=== PATIENT | female | born 1950 | race Caucasian/White ===

== ENCOUNTER 2017-08-15 10:03 | Emergency (ER) | payer OTHER, BC ==
[~2017-08-15] VITALS: Ht 167.6 cm; Wt 81.3 kg
[~2017-08-15 10:03] MED LIST: MEDROL DOSEPAK4 MG PO; PEPCID20 MG PO
[2017-08-15 11:23] LABS: HEMATOCRIT 41.5 % (36.0-46.0); HEMOGLOBIN 13.9 G/DL (11.9-15.5); MCH 29.3 PG (29.0-34.0); MCHC 33.5 G/DL (30.0-36.0); MCV 87.6 FL (83-99); PLATELET COUNT 317 K/uL (156-360); RBC DIS.WIDTH-CV 13.7 % (11.8-14.6); RBC DIS.WIDTH-SD 44.1 % (39-53); RED BLOOD COUNT 4.74 M/uL (3.80-5.20); WHITE BLOOD COUNT 7.8 K/uL (4.1-10.2)
[2017-08-15 11:32] LABS: CHLORIDE 107 mEq/L (99-109); SODIUM 142 mEq/L (136-147)
[2017-08-15 11:33] LABS: GLUCOSE 97 mg/dL (70-99)
[2017-08-15 11:37] LABS: CREATININE 0.8 mg/dL (0.6-1.3); GFR ESTIMATE (CALCULATED) > 59 mL/min/
[2017-08-15 11:38] LABS: UREA NITROGEN (BUN) 13 mg/dL (9-23)
[2017-08-15 11:44] LABS: TROP-I INTERPRETATION NEGATIVE; TROPONIN-I < 0.01 ng/mL (0.0-0.30)
[2017-08-15] MEDS ORDERED: PERCOCET 5/31 TABLET PO (14:53)
[2017-08-15] MEDS ORDERED: TESSALON PERLE100 MG PO (16:08)
[2017-08-15 16:19] VITALS: BP 149/67
== END 2017-08-15 16:20 | disposition home or self-care (01) ==
LOC: EME 10:03
DX: M94.0 Chondrocostal junction syndrome [Tietze] (principal); B34.9 Viral infection, unspecified; I10 Essential (primary) hypertension; E78.5 Hyperlipidemia, unspecified; Z88.0 Allergy status to penicillin
CPT/HCPCS: 71046; 80048; 84484; 85027; 93005; 94640; 99281; 99285; J1885